=== PATIENT | male | born 1975 | race Caucasian/White ===

== ENCOUNTER 2020-08-14 10:56 | Emergency (ER) | payer OTHER ==
[2020-08-14] MEDS ORDERED: KETOROLAC TROMETHAMINE 30 MG/1 ML VIAL IVPUSH ONE (11:17)
[2020-08-14] MEDS ORDERED: ACETAMINOPHEN 1000 MG/100 ML VIAL (NON FORMULARY) IVPB ONE (11:17)
[2020-08-14] MEDS ORDERED: SODIUM CHLORIDE 1,000 ML IV STA (11:17)
[2020-08-14 11:21] VITALS: BP 117/78; PULSE 70; TEMP 97.9; BMI 33.1
[2020-08-14] MEDS ORDERED: KETOROLAC TROMETHAMINE 15 MG/ML VIAL ONE (11:27)
[2020-08-14] MEDS ORDERED: ACETAMINOPHEN INJECTION 100 ML IVPB ONE (11:27)
[2020-08-14 11:51] LABS: HEMATOCRIT 45.7 % (35.4-49); HEMOGLOBIN 15.6 GM/dl (11.7-16.9); LYMPH % 29.6 % (8-40); MCH 30.6 pg (25.7-33.7); MCHC 34.1 g/dl (32.0-35.9); MEAN CELL VOLUME 89.7 fl (80-96); MEAN PLT VOLUME 8.3 fl (7.5-11.1); NEUT % 55.9 % (42.8-82.8); PLATELET COUNT 294 K/MM3 (134-434); RBC 5.09 M/mm3 (4.00-5.60); RDW 12.6 % (11.9-15.9); WHITE BLOOD COUNT 6.4 K/mm3 (4.0-10.8)
[2020-08-14 11:52] LABS: BASO % 4.2 % (0-2.0); EOS % 1.3 % (0-4.5)
[2020-08-14 12:08] LABS: ALBUMIN 4.2 g/dl (3.4-5.0); BILIRUBIN,TOTAL 0.6 mg/dl (0.2-1); CALCIUM 9.2 mg/dl (8.5-10); POTASSIUM 4.1 mmol/L (3.5-5.1); TOT PROT 7.4 g/dl (6.4-8.2)
[2020-08-14] MEDS ORDERED: SODIUM CHLORIDE 0.9% 500 ML INFUS.BAG IV ONE (12:16)
== END 2020-08-14 12:55 | disposition home or self-care (01) ==
LOC: FER 10:56
PROC: 3E033GC Introduction of Other Therapeutic Substance into Peripheral Vein, Percutaneous Approach (ICD-10-PCS; principal; 2020-08-14)
PROC: 3E0337Z Introduction of Electrolytic and Water Balance Substance into Peripheral Vein, Percutaneous Approach (ICD-10-PCS; principal; 2020-08-14)
DX: N20.1 Calculus of ureter (principal)
CPT/HCPCS: 36415; 74176-TC; 80053; 81003; 81015; 83690; 85025; 87086; 99285-25; J0131

== ENCOUNTER 2022-09-17 07:32 | Emergency (ER) | payer OTHER ==
[2022-09-17 07:45] VITALS: BP 132/84; PULSE 79; RESP 20; TEMP 97.9; BMI 29.9
== END 2022-09-17 08:36 | disposition home or self-care (01) ==
LOC: FER 07:32
DX: H01.009 Unspecified blepharitis unspecified eye, unspecified eyelid (principal)
CPT/HCPCS: 99281-25

== ENCOUNTER 2023-03-24 07:20 | Emergency (ER) | payer OTHER ==
[2023-03-24 07:28] VITALS: RESP 20; TEMP 98.3; BMI 29.9
[2023-03-24 08:39] LABS: HEMATOCRIT 47.9 % (35.4-49); HEMOGLOBIN 16.4 G/dL (11.7-16.9); MCH 30.9 pg (25.7-33.7); MCHC 34.2 g/dl (32.0-35.9); MEAN CELL VOLUME 90.3 fl (80-96); MEAN PLT VOLUME 7.6 fl (7.5-11.1); PLATELET COUNT 228.6 10^3/uL (134-434); RDW 13.7 % (11.9-15.9); WHITE BLOOD COUNT 5.6 10^3/uL (4.0-10.8)
[2023-03-24 08:52] LABS: ALBUMIN 4.5 g/dl (3.4-5.0); BILIRUBIN,TOTAL 0.5 mg/dl (0.2-1); BLOOD UREA NITROGEN 24.3 mg/dl (7-18); CALCIUM 9.6 mg/dl (8.5-10.1); POTASSIUM 4.7 mmol/L (3.5-5.1); SGOT/AST 17.5 U/L (15-37); SGPT/ALT 34.1 U/L (7-52); TOT PROT 6.9 g/dl (6.4-8.2)
[2023-03-24 08:54] LABS: PLATELET ESTIMATE ADEQUATE
[2023-03-24 09:01] LABS: INR 0.96 (0.83-1.09); PROTHROMBIN TIME (PATIENT) 11.1 SEC (9.7-13.0)
[2023-03-24] MEDS ORDERED: ASPIRIN 81 MG CHEWABLE TABLETS PO ONE (09:33)
[2023-03-24 09:39] VITALS: BP 122/77; PULSE 58
[2023-03-24] MEDS ORDERED: ASPIRIN 81 MG CHEWABLE TABLETS ONE ×2 (09:42→09:43)
== END 2023-03-24 10:10 | disposition home or self-care (01) ==
LOC: FER 07:20
DX: R20.0 Anesthesia of skin (principal); R20.2 Paresthesia of skin; R53.1 Weakness; F82 Specific developmental disorder of motor function; G62.9 Polyneuropathy, unspecified
CPT/HCPCS: 36415; 70450-TC; 80053; 85027; 85610; 99284-25